=== PATIENT | female | born 1970 | race Caucasian/White ===

== ENCOUNTER 2016-09-17 14:55 | Inpatient (IN) | payer OTHER ==
[2016-10-10 11:16] VITALS: BMI 36.6
[2016-10-15] MEDS ORDERED: MELOXICAM 7.5 MG TAB PO ONE (05:00)
[2016-10-15] MEDS ORDERED: ceFAZolin 2 GM in SODIUM CHLORIDE 0.9% 100 ML IVPB ONE (05:00)
[2016-10-15] MEDS ORDERED: ONDANSETRON 4 MG/2 ML VIAL IVP ONE (05:00)
[2016-10-15] MEDS ORDERED: TRANEXAMIC ACID 1,000 MG in SODIUM CHLORIDE 0.9% 100 ML IVPB ONE (05:00)
[2016-10-15] MEDS ORDERED: ACETAMINOPHEN TAB 500 MG TAB PO ONE (05:00)
[2016-10-15] MEDS ORDERED: MIDAZOLAM 2 MG/2 ML VIAL IV PRN (05:20)
[2016-10-15] MEDS ORDERED: LACTATED RINGERS 1,000 ML IV SCH (05:20)
[2016-10-15] MEDS ORDERED: LIDOCAINE 1% 20 ML VIAL (10MG/ML) FOR IV START INTRADERMA ONE (11:30)
[2016-10-15] MEDS ORDERED: ceFAZolin 3,000 MG in SODIUM CHLORIDE 0.9% IRRIGATIO 3,000 ML IRRIGATION ONE (12:45)
[2016-10-15] MEDS ORDERED: TRANEXAMIC ACID 1,000 MG/10 ML VIAL ONE (12:45)
[2016-10-15] MEDS ORDERED: PROPOFOL 10 MG/ML 20 ML VIAL IV ONE (12:45)
[2016-10-15] MEDS ORDERED: MIDAZOLAM 2 MG/2 ML VIAL ONE (12:45)
[2016-10-15] MEDS ORDERED: PHENYLEPHRINE-0.9% NACL SYG 1 MG/10 ML SYRINGE ONE (12:45)
[2016-10-15] MEDS ORDERED: fentaNYL (PF) 50 MCG/ML 2 ML AMP ONE (12:45)
[2016-10-15] MEDS ORDERED: ePHEDrine 50 MG/ML 1 ML AMP ONE (12:45)
[2016-10-15] MEDS ORDERED: SODIUM CHLORIDE 0.9% 100 ML BAG ONE (12:45)
[2016-10-15] MEDS ORDERED: LACTATED RINGERS 1,000 ML IV ONE ×3 (13:30→15:15)
[2016-10-15] MEDS: ROPIVACAINE 246.25 MG, EPINEPHrine 0.5 MG, KETOROLAC 30 MG, cloNIDine HCL/PF 80 MCG, WA... MISCELLANE ONE ×10 (13:35→14:48)
--- NOTE | 2016-10-15 15:19 | P.OP ---
Date of Procedure: 10/15/16 Procedure(s) Performed: PREOPERATIVE DIAGNOSIS: Right hip severe osteoarthritis POSTOPERATIVE DIAGNOSIS: Right hip severe osteoarthritis OPERATION: Right hip total replacement arthroplasty (uncemented implantation with metal on polyethylene articulation). ANESTHESIA: Spinal ESTIMATED BLOOD LOSS: 700 ml. PLATE DEVELOPER: Beatrice Watt PA-C (assistance with: patient positioning, retraction, exposure, hemostasis, leg positioning, implantation, irrigation, closure, dressing) COMPLICATIONS: None apparent. COMPONENTS IMPLANTED: Joseph continuum acetabular cup with cluster holes; continuum longevity 15 elevated liner, 32 mm id; Joseph VerSys Fiber Metal stem ; VerSys 32 mm femoral head with +7 mm neck length extension INDICATIONS: Lisbeth is a 45-year-old female with significant end-stage osteoarthritis involving the right hip and commensurate severe symptoms. She presents to the operating room today for total hip replacement. I have discussed the steps of the operation as well as potential risks and complications as being inclusive of, but not limited to: Leading, infection, scarring, discomfort, or vessel and/or nerve damage, need for further surgery, loosening, dislocation, wear, osteolysis, limb length inequality, fracture, blood clot, pulmonary embolism, , persistent limp, and other risks. The patient is aware these risks and wishes to proceed with surgery and has signed a consent form. PROCEDURE: After appropriate consent was obtained, the patient was taken to the operating room and placed in supine position. Spinal anesthetic was administered and after confirmation of adequate anesthesia, the patient was placed into the lateral decubitus position with the right side up. Care was taken to make sure that all pressure points were adequately padded and he was stabilized to the table with a [place] hip positioner. The right hip was prepped and draped in the usual aseptic fashion using a combination of ChloraPrep and alcohol. [place] drape was used for the case and the patient received intravenous antibiotics and tranexamic acid prior to the incision. "Time out" was called, confirming patient identity, side, procedure, availability of implants and administration of antibiotics. The incision was created directly over the greater trochanter and carried slightly posteriorly for a posterior approach to the hip. The incision was then deepened down to subcutaneous tissue and fascia alex. Fascia alex was split in line with the incision and split proximally along the fibers of the gluteus thierno. The underlying fibers of the muscle were teased apart using finger dissection and bleeding vessels were picked up and coagulated. Retractor was then placed posteriorly consisting of a blunt Ralph. The short external rotators and capsule were exposed using good visualization of the attachment of the external rotators to the femur was established. The short external rotators and capsule were released using electrocautery from their femoral attachments. A hockey stick shaped incision was created in the capsule. Joint fluid was evacuated and the patient's hip was able to be dislocated fairly easily. The patient's femoral head was severely arthritic with eburnated bone present and a 360 degrees masters of osteophytes. The femoral neck cut was created approximately 1 cm superior to the lesser trochanter using a reciprocating saw. The femoral head and neck fragment was removed and attention was then directed to the acetabulum. An anterior acetabular retractor was applied followed by posterior retraction of the capsule with a [place] retractor. This afforded good visualization into the acetabular cavity. Soft tissue was removed and residual cartilage within the acetabular vault was removed using a curette. Labrum was removed using a long-handled knife. Attention was then directed to reaming. The size 44 reamer was used first, followed by increasing increments until the final size reamer was used. Please see the implantation sheet for exact sizes used for the components. Once the final reamer had been utilized to expand the socket it was noted that there was a good supportive bone around the acetabular socket and no further reaming needed to be performed. The trial the same size as the last reamer used was then impacted into the acetabular vault and found to have good fit. The acetabular component, one size (1mm) greater than the trial was then called for. The cluster holes were placed posteriorly and the component was impacted in a position of approximately 40 degrees abduction and 20 degrees anteversion. This matched this patient's [place] anteversion and it was noted that the cup had excellent stability without need for additional screw fixation. Attention was then directed to the acetabular liner. The anteversion and abduction angle of the component was noted to be very good. A 15 elevated liner was used and locked into position with the elevation posterior superior. Osteophytes around the posterior and inferior aspect of the acetabulum were trimmed as necessary to prevent any impingement. Attention was then directed back to the proximal femur. Retractors were placed around the proximal femur and box osteotome was used followed by canal finder and trochanteric reamer. Cylindrical reaming was performed. Progressive broaching was then performed starting with a #10 broach in a position of 15 degrees anteversion. [place] anteversion was within 5 degrees of stem position. The final size broach (#10) had excellent fit and fill of the patient's metaphysis and diaphysis. Trial reduction was then performed starting with size 32 mm femoral head and various neck combination of stability, limb length equality, and soft tissue tension. Trial components were then removed. The canal was lavaged and the final size femoral stem component was impacted into position. The implant fit very well and had excellent stability. The femoral head was then impacted onto the [place] taper. Blood and debris were removed from the acetabular component and the hip was then reduced and checked for stability, limb length and soft tissue tension. These parameters found to be satisfactory, the wound was then thoroughly irrigated with normal saline. Final hemostasis was obtained using electrocautery and IV tranexamic acid, 1 g given at the time of prepping and draping, and another 1 g given at the time of closure. Local anesthetic solution consisting of ropivacaine with epinephrine, clonidine, and ketorolac was also used throughout the case targeting the capsule , fascia, and skin. Closure of the capsule was performed meticulously using #3 Vicryl suture. Four [id number] sutures were placed in the posterior capsule along with repair of the external rotators. The fascia alex was then repaired using combination of #3 Vicryl suture in interrupted fashion and [place] and running fashion. 2-0 Vicryl suture was used for the subcutaneous tissues and 3-0 Quill for the skin. Dermabond or Steri-Strips were then applied. The patient tolerated the procedure well. There were no complications and the wound bed was dry and there was no need for drain placement. Sterile dressing was then applied and the patient was carefully removed from the operating room table , placed on the stretcher and was taken to the recovery room in stable condition. Sponge and needle counts were correct.
[2016-10-15] MEDS ORDERED: TEMAZEPAM 15 MG CAP PO PRN (15:38)
[2016-10-15] MEDS ORDERED: ONDANSETRON 4 MG/2 ML VIAL IVP PRN (15:38)
[2016-10-15] MEDS ORDERED: NALOXONE 0.4 MG/ML 1 ML VIAL IV PRN (15:38)
[2016-10-15] MEDS ORDERED: HYDROcodone/APAP 5-325MG 1 EACH TAB PO PRN (15:38)
[2016-10-15] MEDS ORDERED: ACETAMINOPHEN TAB 325 MG TAB PO PRN (15:38)
[2016-10-15] MEDS ORDERED: HYDROmorphone 1 MG/ML 1 ML SYRINGE IVP PRN ×2 (15:38)
[2016-10-15] MEDS ORDERED: MAGNESIUM HYDROXIDE 2,400 MG/10 ML CUP PO PRN (15:38)
[2016-10-15] MEDS: HYDROmorphone 1 MG/ML 1 ML SYRINGE IVP PRN ×3 (15:51→21:56)
--- NOTE | 2016-10-15 16:19 | XR ---
Right hip HISTORY: Status post right hip surgery Single frontal view of the right hip Patient is status post right hip arthroplasty. There is anatomic alignment. IMPRESSION: Orthopedic follow-up
[2016-10-15] MEDS: HYDROcodone/APAP 5-325MG 1 EACH TAB PO PRN (17:39)
[2016-10-15] MEDS: LACTATED RINGERS 1,000 ML IV SCH (17:43)
[2016-10-15] MEDS: ceFAZolin 3 GM in SODIUM CHLORIDE 0.9% 100 ML IVPB SCH (20:44)
[2016-10-15] MEDS: SENNOSIDES-DOCUSATE SODIUM 1 EACH TAB PO SCH (20:44)
--- NOTE | 2016-10-15 23:21 | CONS ---
DATE OF CONSULTATION: 10/15/2016 REASON FOR CONSULTATION: Medical management requested by Dr. Aquino. CONSULTATION: This is a pleasant 45-year-old patient followed by Dr. Tomeka Blas whose chronic stable medical conditions include hypertension, hypothyroid, osteoarthritis in other joints, depression and urinary stress incontinence. Patient has undergone right total hip arthroplasty. Post procedure she is sitting up in bed, comfortable. Pain is reasonably well controlled. No nausea or vomiting. Patient's is at the bedside and other family members are present. Patient does not appear to be in any major pain. REVIEW OF SYSTEMS: CONSTITUTIONAL: None. HEENT: None. RESPIRATORY: None. CARDIOVASCULAR: None. GASTROINTESTINAL: None. GENITOURINARY: Urinary stress incontinence. DERMATOLOGICAL: None. HEMATOLOGICAL: None. LYMPHATICS: None. PSYCHIATRY: History of depression but controlled. NEUROLOGICAL: None. MUSCULOSKELETAL: Patient has some pain in the right knee and the right shoulder. PAST MEDICAL HISTORY: 1. Hypertension. 2. Hypothyroid. 3. Osteoarthritis, especially in the shoulder, right knee, hips. 4. Depression. 5. Urinary stress incontinence. PAST SURGICAL HISTORY: 1. Orthopedic surgery. 2. Repair of ruptured Achilles tendon. 3. D&C x3. SOCIAL HISTORY: Does not smoke. Alcohol occasionally. . FAMILY HISTORY: Diabetes mellitus, type 2. HOME MEDICATIONS: 1. Synthroid 100 mcg p.o. daily. 2. Citalopram 40 mg p.o. daily. 3. Atenolol chlorthalidone 50/25 one tablet p.o. daily. 4. Senokot-S 1 tablet p.o. b.i.d. 5. [place] 5 one to two tablets q.4 to 6 p.r.n. 6. Aspirin. ALLERGIES: NONE. On examination, temperature 98, pulse 65, respirations 16, blood pressure 115/57, pulse ox 99% on 2 L. GENERAL APPEARANCE: Well built. BMI of 36.6. Sitting on bed. Comfortable. Awake. EYES: Pupils equal. Conjunctivae normal. HEENT: External appearance of nose and ears normal. Oral cavity normal. NECK: JVD not raised. Mass not palpable. RESPIRATORY: Effort normal. Lungs are clear. CARDIOVASCULAR: First and second sounds normal. No edema. ABDOMEN: Soft, nontender. Liver and spleen not palpable. LYMPHATIC: No lymph node palpable in neck or axillae. PSYCHIATRY: Alert and oriented x3. Mood and affect normal. NEUROLOGICAL: Pupils equal. Cranial nerves grossly intact. Power and sensation grossly intact. EXTREMITIES: Dressing over the right hip. INVESTIGATIONS: No blood work from this admission. Blood work from 10/11/16 shows hemoglobin 13.8, platelets of 246; potassium 4.3; BUN and creatinine normal. ASSESSMENT: 1. Right total hip arthroplasty for osteoarthritis. 2. Essential hypertension. 3. Hypothyroidism. 4. Osteoarthritis, primary, of the right knee, right shoulder. 5. Depression not otherwise specified. 6. Chronic urinary stress incontinence. 7. Obesity; body mass index of 36.6. PLAN: Patient's home medication are resumed. Patient for DVT prophylaxis is probably going to get aspirin 325 twice a day; I do not see an active medication order. Care was discussed with the patient and his family at the bedside. Questions were answered. Patient should follow up with Dr. Blas upon discharge. Thank you, Dr. Aquino.
[2016-10-16] MEDS: HYDROcodone/APAP 5-325MG 1 EACH TAB PO PRN ×2 (00:01→05:01)
[2016-10-16] MEDS: HYDROmorphone 1 MG/ML 1 ML SYRINGE IVP PRN (02:59)
[2016-10-16] MEDS: LACTATED RINGERS 1,000 ML IV SCH ×3 (03:00→23:54)
[2016-10-16] MEDS: ceFAZolin 3 GM in SODIUM CHLORIDE 0.9% 100 ML IVPB SCH (04:54)
[2016-10-16] MEDS: LEVOTHYROXINE 100 MCG TAB PO SCH (06:11)
[2016-10-16] MEDS ORDERED: HYDROcodone/APAP 7.5-325MG 1 EACH TAB PO PRN ×2 (06:58)
[2016-10-16] MEDS: CHLORTHALIDONE 25 MG TAB PO SCH (08:23)
[2016-10-16] MEDS: CITALOPRAM HYDROBROMIDE 20 MG TAB PO SCH (08:23)
[2016-10-16] MEDS: hydrOXYzine PAMOATE 25 MG CAP PO PRN ×3 (08:23→18:44)
[2016-10-16] MEDS: MULTIVITAMINS, THERA 1 EACH TAB PO SCH (08:24)
[2016-10-16] MEDS: ATENOLOL 50 MG TAB PO SCH (08:24)
[2016-10-16 08:25] LABS: Basophils % (A) 0 %; CH 31.3; Eosinophils # (A) 0.1 k/uL (0-0.7); Eosinophils % (A) 1 %; HCT 29.3 % (34.0-46.0); HDW 2.71; Luc # (Auto) 0.13; Luc % (Auto) 2; Lymphocytes # (A) 1.2 k/uL (1.0-4.8); Lymphocytes % (A) 19 %; MCH 31.4 pg (25.0-35.0); MCV 92.2 fL (80.0-100.0); Mean Platelet Volume 7.2; Monocytes # (A) 0.4 k/uL (0-1.0); Monocytes % (A) 6 %; Neutrophils # (A) 4.6 k/uL (1.3-7.7); Neutrophils % (A) 72 %; RBC 3.18 m/uL (3.80-5.40); RDW 12.3 % (11.5-15.5); WBC 6.3 k/uL (3.8-10.6); WBC (Perox) 6.34
--- NOTE | 2016-10-16 09:56 | P.CONS ---
History of Present Illness - Reason for Consult Consult date: 10/16/16 Prophylactic Radiation for heterotropic hip Requesting physician: Lionel Aquino - Chief Complaint I have hip pain - History of Present Illness Lisbeth is a 45-year-old female with hypertension, hypothyroidism, and significant end-stage osteoarthritis involving the right hip and commensurate severe symptoms. She underwent right hip total replacement arthroplasty on 2016 and tolerated it without difficulty. The patient's femoral head was severely arthritic with eburnated bone present and a 360 degrees masters of osteophytes. She presents to the department of radiation oncology for discussion of prophylactic treatment for heterotrophic ossificaiton. Review of Systems Constitutional: Reports fatigue Eyes: denies blurred vision, denies pain Ears, nose, mouth and throat: Denies headache, Denies sore throat Cardiovascular: Denies chest pain, Denies shortness of breath Musculoskeletal: Reports hot joints, Reports low back pain Musculoskeletal: right: hip pain, hip stiffness Past Medical History Past Medical History: Hypertension, Osteoarthritis (OA), Thyroid Disorder History of Any Multi-Drug Resistant Organisms: None Reported Past Surgical History: Orthopedic Surgery Additional Past Surgical History / Comment(s): REPAIR RUPTURED LT ACHILLES, D & C X 3 Past Anesthesia/Blood Transfusion Reactions: No Reported Reaction Past Psychological History: Depression Smoking Status: Never smoker Past Alcohol Use History: Occasional Past Drug Use History: None Reported - Past Family History Mother Family Medical History: No Reported History, Diabetes Mellitus Father Family Medical History: Congestive Heart Failure (CHF), Diabetes Mellitus Medications and Allergies Home Medications Medication Instructions Recorded Confirmed Type Atenolol/Chlorthalidone 1 tab PO DAILY 10/10/16 10/15/16 History [Atenolol-Chlorthalidone 50-25] Citalopram Hydrobromide 40 mg PO DAILY 10/10/16 10/15/16 History Levothyroxine Sodium [Synthroid] 100 mcg PO DAILY 10/10/16 10/15/16 History Allergies Allergy/AdvReac Type Severity Reaction Status Date / Time No Known Allergies Allergy Verified 10/15/16 16:24 Physical Exam Vitals: Vital Signs Temp Pulse Pulse Resp BP BP Pulse Ox 10/16/16 07:36 97.2 F L 82 118/72 98 10/16/16 07:11 94 L 10/16/16 04:00 16 10/16/16 00:37 98.1 F 66 16 117/63 98 10/16/16 00:00 16 10/15/16 20:00 16 10/15/16 19:09 97.9 F 63 16 115/69 99 10/15/16 18:20 57 L 121/69 10/15/16 17:45 64 143/51 10/15/16 17:30 57 L 16 143/51 10/15/16 17:15 53 L 138/77 10/15/16 17:00 60 103/72 10/15/16 16:45 57 L 90/52 10/15/16 16:30 97.5 F L 56 L 17 118/75 96 10/15/16 16:15 54 L 16 137/78 99 10/15/16 16:00 51 L 16 125/73 99 10/15/16 15:45 52 L 16 115/60 98 10/15/16 15:34 98.0 F 65 16 115/57 94 L 10/15/16 11:22 98.2 F 50 L 16 157/69 95 Intake and Output 10/15/16 10/16/16 10/16/16 22:59 06:59 14:59 Intake Total 1900 800 Output Total 1270 Balance 630 800 Intake: IV 1100 800 Lactated Ringers 1,000 ml 400 800 @ 100 mls/hr IV .Q10H ESTEE Rx#:[id number] Oral 800 Output: Urine 490 Estimated Blood Loss 780 Other: Voiding Method Bedpan # Voids 1 Weight 90.718 kg Results CBC & Chem 7: 10/16/16 07:39 Labs: Abnormal Lab Results - Last 24 Hours (Table) 10/16/16 Range/Units 07:39 RBC 3.18 L (3.80-5.40) m/uL Hgb 10.0 L D (11.4-16.0) gm/dL Hct 29.3 L (34.0-46.0) % Assessment and Plan Plan: Ms. Estrada is a 45 year old female status post right hip arthroplasy who now presents for external beam radiaiton to her right hip and surrounding soft tissue to decrease her risk of heterotropic ossificaiton. Post operative RT as been shown to be an effective treatment in preventing heterotrophic ossification of bone resulting in an ankylosed joint. We therefore intend on delivering a single fraction of 700cGy with 23MV photons in a AP/PA beam arrangement. A discussion of the risks and side effects of treatment was had including, but not limited to: skin redness, irritaiton, fertility changes, and risk of second malignancy. A consent was signed prior to simulation.
[2016-10-16] MEDS ORDERED: HYDROcodone/APAP 10-325MG 1 EACH TAB PO PRN (10:10)
[2016-10-16] MEDS ORDERED: HYDROmorphone 1 MG/ML 1 ML SYRINGE IVP PRN ×3 (10:11)
--- NOTE | 2016-10-16 10:31 | P.PN ---
Subjective Principal diagnosis: Status post right total hip arthroplasty Patient is pleasant 45-year-old female seen at bedside this morning. She is postop day #1 from right total hip arthroplasty performed by Dr. Aquino. She has pain at the surgical site as expected. She also has some right knee pain which she states she's had preoperative knee pain. She denies radicular symptoms including numbness, tingling or weakness. She denies calf pain. Review of systems is negative for fever, chills, chest pain, shortness breath, abdominal pain, nausea, vomiting, dizziness, headaches, slurred speech or other. Objective - Vital Signs Vital signs: Vital Signs Temp 97.2 F L 10/16/16 07:36 Pulse 82 10/16/16 07:36 Resp 16 10/16/16 04:00 BP 118/72 10/16/16 07:36 Pulse Ox 98 10/16/16 07:36 Intake & Output 10/15/16 10/16/16 10/16/16 18:59 06:59 18:59 Intake Total 4601 1200 Output Total 1030 240 Balance 3571 960 Weight 90.718 kg Intake: IV 3801 1200 Lactated Ringers 1,000 ml 1200 @ 100 mls/hr IV .Q10H ESTEE Rx#:[id number] Oral 800 Output: Urine 250 240 Estimated Blood Loss 780 Other: Voiding Method Bedpan # Voids 1 - Exam Inspection of the right lower extremity shows a benign surgical wound. There is no active bleeding, dehiscence or drainage. There is no effusion or erythema at the right knee. Passive range of motion is relatively painless. Neurovascular status is intact with motor and sensation light touch throughout the right lower extremity. Calf is soft and nontender. 2+ dorsalis pedis pulse present and less than 2 second cap refill is present. - Constitutional General appearance: Present: no acute distress - Psychiatric Psychiatric: Present: A&O x's 3, appropriate affect, intact judgment & insight - Labs CBC & Chem 7: 10/16/16 07:39 Labs: Abnormal Lab Results - Last 24 Hours (Table) 10/16/16 Range/Units 07:39 RBC 3.18 L (3.80-5.40) m/uL Hgb 10.0 L D (11.4-16.0) gm/dL Hct 29.3 L (34.0-46.0) % Assessment and Plan (1) Status post total replacement of right hip Narrative/Plan: She will continue with routine postop orthopedic protocol including pain management, wound care, physical therapy, DVT prophylaxis and medical management. Pain medication has been increased. Continue to monitor her right knee. Expect that she'll be able to be discharged in the next 1-2 days. Status: Acute Time with Patient: Less than 30
[2016-10-16] MEDS: HYDROcodone/APAP 10-325MG 1 EACH TAB PO PRN ×2 (13:17→18:44)
--- NOTE | 2016-10-16 19:11 | PN ---
DATE OF SERVICE: 10/16/2016 PRESENTING COMPLAINT: Right hip surgery. INTERVAL HISTORY: Patient is status post right hip surgery, sitting up on a chair. Some pain is present. No nausea or vomiting. Did tolerate her breakfast. Family is at the bedside. Did work with Physical Therapy. Review of systems done for constitutional, cardiovascular, GI, pulmonary, musculoskeletal; relevant findings as above. Current medications are reviewed. On examination, temperature 97.2, pulse 82, respiration 16, blood pressure 118/72, pulse ox 98% on room air. GENERAL APPEARANCE: Sitting up in a chair, comfortable, awake. EYES: Pupils equal. Conjunctivae normal. NECK: JVD not raised. Mass not palpable. RESPIRATORY: Effort normal. LUNGS: Fair air entry. CARDIOVASCULAR: First and second sounds normal. No edema. ABDOMEN: Soft, nontender. Liver and spleen not palpable. PSYCHIATRY: Alert and oriented x3. Mood and affect normal. INVESTIGATIONS: White count 6.3, hemoglobin 10. ASSESSMENT: 1. Right total hip arthroplasty for osteoarthritis. 2. Acute postoperative blood loss anemia as expected from surgery. 3. Essential hypertension. 4. Hypothyroidism. 5. Osteoarthritis, primary, of the right knee and right shoulder. 6. Depression not otherwise specified. 7. Chronic urinary stress incontinence. 8. Obesity; body mass index 36.6. PLAN: Care was discussed with the patient, who is stable. Continue current medication and treatment plan. If patient wishes, she may take an iron supplementation.
[2016-10-16] MEDS: MELOXICAM 7.5 MG TAB PO SCH (19:20)
[2016-10-16] MEDS: ASPIRIN 325 MG TAB PO SCH (21:13)
[2016-10-16] MEDS: SENNOSIDES-DOCUSATE SODIUM 1 EACH TAB PO SCH (21:13)
[2016-10-17] MEDS: HYDROcodone/APAP 10-325MG 1 EACH TAB PO PRN ×4 (00:06→17:51)
[2016-10-17] MEDS: hydrOXYzine PAMOATE 25 MG CAP PO PRN (00:07)
[2016-10-17] MEDS: LEVOTHYROXINE 100 MCG TAB PO SCH (05:47)
[2016-10-17] MEDS: MELOXICAM 7.5 MG TAB PO SCH (07:46)
[2016-10-17] MEDS: CITALOPRAM HYDROBROMIDE 20 MG TAB PO SCH (07:46)
[2016-10-17] MEDS: ASPIRIN 325 MG TAB PO SCH (07:46)
--- NOTE | 2016-10-17 08:17 | P.DS ---
Providers Date of admission: 10/15/16 11:02 Expected date of discharge: 10/17/16 Attending physician: Lionel Aquino Consults: 10/15/16 12:09 Consult Physician Urgent Consulting Provider: Jese Coe Consult Reason/Comments: Radiation tx X1 right hip Do you want consulting provider notified?: Yes 10/15/16 15:38 Consult Physician Routine Consulting Provider: Jeison Granados Consult Reason/Comments: medical management Do you want consulting provider notified?: Yes Primary care physician: Tomeka Blas - Discharge Diagnosis(es) (1) Status post total replacement of right hip Current Visit: Yes Status: Acute Priority: Medium Hospital Course: This is a 45-year-old female with known history of degenerative arthritis of the right hip. The patient presents for evaluation. After discussion and consideration patient elects to proceed with total hip arthroplasty. The patient is seen preoperatively by Dr. Blas and cleared for surgery. Patient is admitted to [facility] on 10/15/2016 for total hip arthroplasty. The procedures performed without complication or sequelae. The patient is doing well postoperatively. She had a fever of 102 last evening but has been afebrile since. Labs and vital signs are stable on day of discharge. We will keep her here until his afternoon to be sure that she is afebrile. On day of discharge patient's hip incision is healing well. There is minimal erythema. There is no drainage noted at this time. There is minimal soft tissue swelling to the hip and thigh. Patient has full foot and ankle motion without difficulty or pain. Neurovascular status to the right lower extremity is intact. Patient is discharged to home in good condition. Please see med rec for accurate list of home medications. Plan - Discharge Summary New Discharge Prescriptions: Aspirin 325 mg PO BID #120 tab HYDROcodone/APAP 5-325MG [[place] 5] 1 - 2 each PO Q4-6H PRN #90 tab PRN Reason: Pain Sennosides-Docusate Sodium [Senokot-S] 1 tab PO BID #60 tablet Discharge Medication List Atenolol/Chlorthalidone [Atenolol-Chlorthalidone 50-25] 1 tab PO DAILY 10/10/16 [History] Citalopram Hydrobromide 40 mg PO DAILY 10/10/16 [History] Levothyroxine Sodium [Synthroid] 100 mcg PO DAILY 10/10/16 [History] Aspirin 325 mg PO BID #120 tab 10/15/16 [Rx] HYDROcodone/APAP 5-325MG [[place] 5] 1 - 2 each PO Q4-6H PRN #90 tab 10/15/16 [Rx] Sennosides-Docusate Sodium [Senokot-S] 1 tab PO BID #60 tablet 10/15/16 [Rx] Follow up Appointment(s)/Referral(s): Beatrice Watt, MARYLU [PHYSICIAN [employer] SUPERVISOR] - 2 We[facility], [NON-STAFF] - As Needed Activity/Diet/Wound Care/Special Instructions: May bear 50% wt w walker. May shower if no drainage from incision. Maintain hip precautions. Discharge Disposition: HOME WITH HOME HEALTH SERVICES
[2016-10-17] MEDS: MULTIVITAMINS, THERA 1 EACH TAB PO SCH (11:23)
[2016-10-17] MEDS: ATENOLOL 50 MG TAB PO SCH (11:24)
[2016-10-17] MEDS: CHLORTHALIDONE 25 MG TAB PO SCH (11:24)
[2016-10-17 12:30] VITALS: BP 110/59; PULSE 74; RESP 17; TEMP 98.3
--- NOTE | 2016-10-17 22:01 | PN ---
DATE OF SERVICE: 10/17/2016 PRESENTING COMPLAINT: Right hip surgery. INTERVAL HISTORY: This patient was seen by me earlier today. She is up in a chair. Did work with physical therapy. Some pain is still present at the operative site. Did tolerate her meals. More comfortable she states. Review of systems done for constitutional, cardiovascular, GI, pulmonary, musculoskeletal, relevant findings as above. Current medications are reviewed. On examination, temperature 97, pulse 58. Respiratory rate 16, blood pressure 102/58, pulse 100% on 2 L. GENERAL APPEARANCE: Sitting up on a chair, comfortable, awake. EYES: Pupils equal. Conjunctivae normal. NECK: JVD not is palpable. RESPIRATORY: Effort normal. LUNGS: Clear. CARDIOVASCULAR: First and second sounds normal. No edema. ABDOMEN: Soft, nontender. Liver and spleen not palpable. PSYCHIATRY: Alert and oriented x3. Mood and affect is normal. INVESTIGATIONS: White count 6.3, hemoglobin 10. ASSESSMENT: 1. Right total hip arthroplasty for osteoarthritis. 2. Acute blood loss anemia as expected from surgery. 3. Essential hypertension. 4. Hypothyroidism. 5. Primary osteoarthritis of the right knee and right shoulder. 6. Depression not otherwise specified. 7. Chronic urinary stress incontinence. 8. Obesity; body mass index 36.6. PLAN: Stable. Doing well. Continue current medication and treatment plan.
== END 2016-10-17 18:43 | disposition home health service (06) | DRG 470 ==
LOC: 2ORMAIN 10-15 11:02 → 3SUR 10-15 15:26
PROVIDERS: ADMIT Orthopaedic Surgery; ATTEND Orthopaedic Surgery
PROC: 0SR902A Replacement of Right Hip Joint with Metal on Polyethylene Synthetic Substitute, Uncemented, Open Approach (ICD-10-PCS; 2016-10-15)
PROC: DP092ZZ Beam Radiation of Femur using Photons >10 MeV (ICD-10-PCS; principal; 2016-10-16)
DX: M16.11 Unilateral primary osteoarthritis, right hip (principal); E66.9 Obesity, unspecified; I10 Essential (primary) hypertension; D62 Acute posthemorrhagic anemia; F32.9 Major depressive disorder, single episode, unspecified; E03.9 Hypothyroidism, unspecified; Z79.899 Other long term (current) drug therapy; N39.3 Stress incontinence (female) (male); Z68.36 Body mass index [BMI] 36.0-36.9, adult; Z82.49 Family history of ischemic heart disease and other diseases of the circulatory system
CPT/HCPCS: 73501; 77290; 77307; 77334; 77412; 81025; 85025; 86850; 86900; 86901; 88300; 94760

== ENCOUNTER → 2016-10-11 | Outpatient (CLI) | payer OTHER ==
[2016-10-11 14:43] LABS: Appearance,Urine Clear (Clear); Bilirubin,Urine Negative (Negative); Glucose,Urine (UA) Negative (Negative); Ketones,Urine Negative (Negative); Leukocyte Esterase,Urine Negative (Negative); Nitrite,Urine Negative (Negative); Protein,Urine Negative (Negative); Specific Gravity,Urine 1.003 (1.001-1.035); UA Billing (MACRO vs. MICRO) CHEM; Urobilinogen,Urine <2.0 mg/dL (<2.0)
[2016-10-11 14:45] LABS: Basophils % (A) 1 %; CH 31.4; CHCM 34.4; Eosinophils # (A) 0.1 k/uL (0-0.7); Eosinophils % (A) 2 %; HCT 41.2 % (34.0-46.0); HDW 2.76; HGB 13.8 gm/dL (11.4-16.0); Luc # (Auto) 0.25; Luc % (Auto) 3; Lymphocytes # (A) 2.6 k/uL (1.0-4.8); Lymphocytes % (A) 36 %; MCH 30.7 pg (25.0-35.0); MCHC 33.4 g/dL (31.0-37.0); MCV 91.7 fL (80.0-100.0); Mean Platelet Volume 6.9; Monocytes # (A) 0.4 k/uL (0-1.0); Monocytes % (A) 5 %; Neutrophils # (A) 3.8 k/uL (1.3-7.7); Neutrophils % (A) 53 %; RBC 4.49 m/uL (3.80-5.40); RDW 12.3 % (11.5-15.5); WBC 7.2 k/uL (3.8-10.6); WBC (Perox) 6.82
[2016-10-11 14:48] LABS: Partial Thromboplastin Time 25.2 sec (22.0-30.0)
[2016-10-11 14:54] LABS: ALT 21 U/L (9-52); AST 23 U/L (14-36); Alkaline Phosphatase 84 U/L (38-126); Anion Gap 8 mmol/L; Blood Urea Nitrogen 14 mg/dL (7-17); Calcium 9.5 mg/dL (8.4-10.2); Carbon Dioxide 30 mmol/L (22-30); Chloride 101 mmol/L (98-107); Glucose 90 mg/dL (74-99); Non-African American GFR(MDRD) >60 (>60 ml/min/1.73 sqM); Potassium 4.3 mmol/L (3.5-5.1); Sodium 139 mmol/L (137-145); Total Bilirubin 0.6 mg/dL (0.2-1.3); Total Protein 7.8 g/dL (6.3-8.2)
== END | disposition home or self-care (01) ==
LOC: LABPAT 13:14
PROVIDERS: ATTEND Orthopaedic Surgery
DX: Z01.810 Encounter for preprocedural cardiovascular examination (principal)
CPT/HCPCS: 80053; 81003; 85025; 85610; 85730; 87070

== ENCOUNTER → 2017-11-11 | Outpatient (CLI) | payer OTHER ==
--- NOTE | 2017-11-12 14:02 | MM ---
Reason for exam: screening (asymptomatic). Physical Findings: A clinical breast exam by your physician is recommended on an annual basis and results should be correlated with mammographic findings. MG Screening Mammo w CAD Bilateral CC, MLO, and XCCL view(s) were taken. The breast tissue is almost entirely fat. No significant changes when compared with prior studies. ASSESSMENT: Benign, BI-RAD 2 RECOMMENDATION: Routine screening mammogram of both breasts in 1 year.
== END | disposition home or self-care (01) ==
LOC: RADMAMWWP 16:07
PROVIDERS: ATTEND Family Medicine
DX: Z12.31 Encounter for screening mammogram for malignant neoplasm of breast (principal)
CPT/HCPCS: 77067

== ENCOUNTER → 2019-05-15 | Outpatient (CLI) | payer OTHER ==
--- NOTE | 2019-05-18 11:18 | MM ---
Reason for exam: screening (asymptomatic). Last mammogram was performed 1 year and 6 months ago. History: Patient is postmenopausal and is nulliparous. Family history of breast cancer in paternal aunt at age 63. Physical Findings: A clinical breast exam by your physician is recommended on an annual basis and results should be correlated with mammographic findings. MG Screening Mammo w CAD Bilateral CC and MLO view(s) were taken. XCCL view(s) were taken of the right breast. CV view(s) were taken of the left breast. Prior study comparison: November 11, 2017, bilateral MG screening mammo w CAD. There are scattered fibroglandular densities. Benign appearing calcifications in the right breast. No suspicious abnormality. No significant changes when compared with prior studies. ASSESSMENT: Benign, BI-RAD 2 RECOMMENDATION: Routine screening mammogram of both breasts in 1 year.
== END | disposition home or self-care (01) ==
LOC: RADMAMWWP 09:58
PROVIDERS: ATTEND Family Medicine
DX: Z12.31 Encounter for screening mammogram for malignant neoplasm of breast (principal)
CPT/HCPCS: 77067

== ENCOUNTER → 2022-02-27 | Outpatient (CLI) | payer OTHER ==
--- NOTE | 2022-02-27 15:35 | US ---
EXAMINATION TYPE: US venous doppler duplex LE RT DATE OF EXAM: 02/27/2022 3:07 PM COMPARISON: NONE CLINICAL HISTORY: I80.9 PHLEBITIS AND THROMBOPHLEBITIS OF UNSPECIFIED. SIDE PERFORMED: Right TECHNIQUE: The lower extremity deep venous system is examined utilizing real time linear array sonog mamta with graded compression, doppler sonography and color-flow sonography. VESSELS IMAGED: Common Femoral Vein Deep Femoral Vein Greater Saphenous Vein * Femoral Vein Popliteal Vein Small Saphenous Vein * Proximal Calf Veins (* superficial vessels) Grayscale, color doppler, spectral doppler imaging performed of the deep veins of the lower extremiti es. There is normal flow, compressibility, vascular waveforms. Right Leg: Negative for DVT GSV and PTV also scanned per order. No DVT or SVT seen IMPRESSION: No evidence for deep venous thrombosis of the right lower extremity.
== END | disposition home or self-care (01) ==
LOC: RADUSWWP 14:20
PROVIDERS: ATTEND Orthopaedic Surgery
DX: I80.9 Phlebitis and thrombophlebitis of unspecified site (principal)

== ENCOUNTER → 2024-06-19 | Outpatient (CLI) | payer OTHER ==
--- NOTE | 2024-06-19 10:34 | MM ---
Reason for Exam: Screening (asymptomatic). Last mammogram was performed 5 year(s) and 1 month(s) ago. Patient History: Menarche at age 9. Patient has no children. Postmenopausal. Paternal aunt had breast cancer, age 63. Risk Values: Leena 5 year model risk: 1.4%. NCI Lifetime model risk: 9.9%. Prior Study Comparison: 11/11/2017 Bilateral Screening Mammogram, [facility]. 05/15/2019 Bilateral Screening Mammogram, [facility]. Tissue Density: The breasts are almost entirely fatty. Findings: Analyzed By CAD. Right breast: There is no suspicious group of microcalcifications or new suspicious mass. Left breast: There is no suspicious group of microcalcifications or new suspicious mass. Overall Assessment: Negative, BI-RAD 1 Management: Screening Mammogram of both breasts in [address] [facility] will attempt to contact patient to return for supplemental views and ultrasound if indicated. Patient should continue monthly self-breast exams. A clinical breast exam by your physician is recommended on an annual basis. This exam should not preclude additional follow-up of suspicious palpable abnormalities. Note on Leena scores and lifetime risk: 1. A Leena score greater than 3% is considered moderate risk. If this is the case, consider specialist referral to assess eligibility for a risk reducing agent. 2. If overall lifetime risk for the development of breast cancer is 20% or higher, the patient may qualify for future screening with alternating mammogram and breast MRI. [facility], , 06/19/2024 10:30 AM. Electronically signed and approved by: Nigel Greer DO
== END | disposition home or self-care (01) ==
LOC: RADMAMWWP 09:38
PROVIDERS: ATTEND Family Medicine
DX: Z12.31 Encounter for screening mammogram for malignant neoplasm of breast (principal); Z78.0 Asymptomatic menopausal state; Z80.3 Family history of malignant neoplasm of breast
CPT/HCPCS: 77067

== ENCOUNTER 2024-09-22 07:20 | Day surgery (SDC) | payer OTHER ==
[2024-09-18 15:44] VITALS: BMI 41.1
[~2024-09-22 07:20] MED LIST: LIDOCAINE 1% (10MG/ML) FOR IV START INTRADERMA PRN
[2024-09-22] MEDS: IV FLUID CONTINUATION 1,000 ML IV ONE (07:42)
[2024-09-22] MEDS: LACTATED RINGERS 1,000 ML IV SCH (08:02)
[2024-09-22 08:06] VITALS: RESP 16; TEMP 98.4
[2024-09-22] MEDS ORDERED: PROPOFOL 10 MG/ML 20 ML VIAL IV ONE (08:19)
--- NOTE | 2024-09-22 08:22 | P.GSHP ---
History of Present Illness H&P Date: 09/22/24 Chief Complaint: Colon cancer screening 53-year-old female here for colonoscopy. She has not had 1 previously. 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 No bowel complaints. Family history of colon cancer in a aunt. Past Medical History Past Medical History: Hypertension, Osteoarthritis (OA), Thyroid Disorder Additional Past Medical History / Comment(s): Current occasional cough w/ clears sputum from cold History of Any Multi-Drug Resistant Organisms: None Reported Past Surgical History: Joint Replacement, Orthopedic Surgery Additional Past Surgical History / Comment(s): REPAIR RUPTURED L ACHILLES, D & C X 3, R hip replacement 2017 Past Anesthesia/Blood Transfusion Reactions: No Reported Reaction Additional Past Anesthesia/Blood Transfusion Reaction / Comment(s): No hx of blood transfusion Smoking Status: Never smoker - Past Family History Mother Family Medical History: Diabetes Mellitus Father Family Medical History: Congestive Heart Failure (CHF), Diabetes Mellitus Additional Family Medical History / Comment(s): Paternal aunt w/ breast CA and a "spot" recently removed from colon. Medications and Allergies Home Medications Medication Instructions Recorded Confirmed Type Atenolol/Chlorthalidone 1 tab PO DAILY 10/10/16 09/22/24 History [Atenolol-Chlorthalidone 50-25] Citalopram Hydrobromide 40 mg PO DAILY 10/10/16 09/22/24 History [Citalopram HBr] Levothyroxine Sodium [Synthroid] 100 mcg PO DAILY 10/10/16 09/22/24 History Ibuprofen [Motrin] 800 mg PO DIRECTED PRN 09/18/24 09/22/24 History Allergies Allergy/AdvReac Type Severity Reaction Status Date / Time No Known Allergies Allergy Verified 09/22/24 07:43 Surgical - Exam Vital Signs Temp Pulse Resp BP Pulse Ox 98.4 F 62 16 159/71 94 L 09/22/24 08:00 09/22/24 08:00 09/22/24 08:00 09/22/24 08:00 09/22/24 08:00 Physical exam: General: Well-developed, well-nourished HEENT: Normocephalic, sclerae nonicteric Abdomen: Nontender, nondistended Extremities: No edema Neuro: Alert and oriented Assessment and Plan (1) Colon cancer screening Narrative/Plan: Will proceed with colonoscopy at this time. Current Visit: Yes Status: Acute Code(s): Z12.11 - ENCOUNTER FOR SCREENING FOR MALIGNANT NEOPLASM OF COLON SNOMED Code(s): 046930974
--- NOTE | 2024-09-22 08:37 | P.PCN ---
Date of Procedure: 09/22/24 Procedure(s) Performed: PREOPERATIVE DIAGNOSIS: Colon cancer screening POSTOPERATIVE DIAGNOSIS: Normal exam PROCEDURE: Colonoscopy ANESTHESIA: MAC SURGEON: Oleksandr Garcia M.D. SPECIMENS: None ENDOSCOPIC PROCEDURE: The patient was placed on the endoscopy table in the left decubitus position. The Olympus colonoscope was inserted into the anus and passed under direct visualization to the base of the cecum. The appendiceal orifice was visualized. From that point the scope was slowly withdrawn inspecti ng all surfaces carefully. There were no neoplastic inflammatory or polypoid lesions throughout the cecum, ascending, transverse, descending, sigmoid and rectum. There was no visible diverticulosis noted. Digital rectal examination was normal. The patient was taken to the recovery room in stable condition per anesthesia guidelines. RECOMMENDATIONS: Resume diet. Repeat colonoscopy 10 years.
[2024-09-22 08:56] VITALS: BP 134/75; PULSE 60
== END 2024-09-22 09:11 | disposition home or self-care (01) ==
LOC: ORWHC2ENDO 07:20
PROVIDERS: ATTEND Surgery
DX: Z12.11 Encounter for screening for malignant neoplasm of colon (principal); I10 Essential (primary) hypertension; E03.9 Hypothyroidism, unspecified; M19.90 Unspecified osteoarthritis, unspecified site; F32.A Depression, unspecified; Z79.890 Hormone replacement therapy; Z79.899 Other long term (current) drug therapy; Z80.0 Family history of malignant neoplasm of digestive organs
CPT/HCPCS: 45378; J2704